=== PATIENT | female | born 2000 | race African-American/Black ===

== ENCOUNTER 2022-04-29 11:41 | Emergency (ER) | payer SELFPAY | END 2022-04-29 12:00 | disposition left against medical advice (07) | LOC: JD.ED 11:41 | DX: Z53.21 Procedure and treatment not carried out due to patient leaving prior to being seen by health care provider (principal) ==

== ENCOUNTER 2022-05-01 08:03 | Emergency (ER) | payer SELFPAY ==
[2022-05-01] MEDS ORDERED: Dextrose 5%-0.9% NaCl 1,000 ML IV SCH (08:30)
== END 2022-05-01 10:50 | disposition home or self-care (01) ==
LOC: JD.ED 08:03
DX: O20.9 Hemorrhage in early pregnancy, unspecified (principal); Z91.041 Radiographic dye allergy status; Z3A.01 Less than 8 weeks gestation of pregnancy
CPT/HCPCS: 36415; 76817; 80053; 83735; 84443; 84702; 84703; 85025; 86850; 86900; 86901; 96365; 96366; 99284; J7042